=== PATIENT | male | born 1935 | race Asian ===

== ENCOUNTER 2020-07-20 14:55 | Emergency (ER) | payer OTHER ==
[~2020-07-20] VITALS: Ht 147.3 cm; Wt 59.0 kg
[2020-07-20 14:57] VITALS: Ht 147.3 cm; Wt 59.0 kg
[2020-07-20 20:33] VITALS: BP 148/77
== END 2020-07-20 20:33 | disposition home or self-care (01) ==
LOC: ED 14:55
DX: U07.1 COVID-19 (principal)
CPT/HCPCS: M0239; Q0239